=== PATIENT | male | born 1960 | race Caucasian/White ===

== ENCOUNTER 2016-10-13 17:55 | Emergency (ER) | payer MEDICAID ==
[~2016-10-13] VITALS: Ht 160 cm; Wt 80.0 kg
[2016-10-13 17:58] VITALS: Ht 160 cm; Wt 80.0 kg
[2016-10-13] MEDS ORDERED: DIPHENHYDRAMINE 50 MG INJ IM ONE (19:00)
[2016-10-13] MEDS ORDERED: predniSONE 20 MG TAB PO ONE (19:00)
[2016-10-13 19:20] LABS: ADD UMIC NO; URINE BILIRUBIN (Dip) NEGATIVE (NEGATIVE); URINE BLOOD (Dip) NEGATIVE (NEGATIVE); URINE COLOR YELLOW (YELLOW); URINE GLUCOSE (Dip) NEGATIVE (NEGATIVE); URINE KETONES (Dip) NEGATIVE (NEGATIVE); URINE LEUKOCYTE ESTERASE (Dip) NEGATIVE (NEGATIVE); URINE NITRITE (Dip) NEGATIVE (NEGATIVE); URINE TOTAL PROTEIN (Dip) NEGATIVE (NEGATIVE); URINE UROBILINOGEN (Dip) 1.0 E.U./dL (0.1-1.0)
[2016-10-13] MEDS ORDERED: BEN25 PO (19:35)
[2016-10-13] MEDS ORDERED: PRED20TA PO (19:35)
[2016-10-13] MEDS ORDERED: HC30CR25 TOP (19:36)
--- NOTE | 2016-10-13 19:38 | ERD ---
ER Documentation Chief Complaint Date/Time DATE: 10/13/16 TIME: 19:36 Chief Complaint rash/itching x 1 week HPI This 56-year-old male complains of an itchy rash for last week. His or his whole body extremities and groin. Denies any new medications or known allergies. Denies any vomiting, abdominal pain, shortness of breath, sore throat. ROS All systems reviewed and are negative except as per history of present illness. Medications Home Meds Active Scripts Hydrocortisone* Topical (Hydrocortisone* Topical) 2.5%-28.3 Gm Cream..g., 1 APPLIC TOP BID for 7 Days, #1 TUB Prov:MADELINE ONEILL MD 10/13/16 Diphenhydramine Hcl* (Benadryl*) 25 Mg Cap, 25 MG PO Q6, #20 CAP Prov:MADELINE ONEILL MD 10/13/16 Prednisone* (Prednisone*) 20 Mg Tab, 60 MG PO DAILY for 4 Days, TAB Start 10/14/2016 Prov:MADELINE ONEILL MD 10/13/16 Allergies Allergies: Coded Allergies: No Known Allergy (Unverified , 10/13/16) PMhx/Soc Medical and Surgical Hx: pt denies Medical Hx, pt denies Surgical Hx Hx Alcohol Use: No Hx Substance Use: No Hx Tobacco Use: No Smoking Status: Never smoker Physical Exam Vitals Vital Signs Date Time Temp Pulse Resp B/P Pulse Ox O2 Delivery O2 Flow Rate FiO2 10/13/16 17:58 99.3 90 18 120/70 99 Physical Exam Const: [] Alert, not ill-appearing. Head: Atraumatic Eyes: Normal Conjunctiva ENT: Normal External Ears, Nose and Mouth. TMs and oropharynx normal. Neck: Full range of motion..~ No meningismus. Resp: Clear to auscultation bilaterally Cardio: Regular rate and rhythm, no murmurs Abd: Soft, non tender, non distended. Normal bowel sounds Skin: No petechiae or purpura. There is a scattered very fine or faint macular papular rash which From his brother no focal lesions. Back: No midline or flank tenderness Ext: No cyanosis, or edema Neur: Awake and alert Psych: Normal Mood and Affect Results 24 hrs Laboratory Tests Test 10/13/16 19:03 Urine Color YELLOW Urine Clarity CLEAR Urine pH 6.0 Urine Specific Mcgrady 1.015 Urine Ketones NEGATIVE Urine Nitrite NEGATIVE Urine Bilirubin NEGATIVE Urine Urobilinogen 1.0 E.U./dL Urine Leukocyte Esterase NEGATIVE Urine Hemoglobin NEGATIVE Urine Glucose NEGATIVE% Urine Total Protein NEGATIVE Current Medications Medications (Trade) Dose Ordered Sig/Ivanna Route PRN Reason Start Time Stop Time Status Last Admin Dose Admin Diphenhydramine HCl (Benadryl) 50 mg ONCE ONCE IM 10/13/16 19:00 10/13/16 19:01 DC 10/13/16 19:07 Prednisone (Prednisone) 60 mg ONCE ONCE PO 10/13/16 19:00 10/13/16 19:01 DC 10/13/16 19:08 Procedures/MDM Urine is negative for bilirubin, leukocytes, glucose and is normal. Patient presents for an itchy rash uncertain etiology without evidence of hepatobiliary disease, signs of focal lesions to suggest insect bite scabies. Some signs of anaphylaxis or cellulitis. His no additional evidence of purpura or life- threatening rashes. He has a dermatitis of uncertain etiology. Is given prednisone 60 mg by mouth and Benadryl 50 mg IM. He'll be treated with a course of Benadryl and cortisone and prednisone home and further observation. Patient is advised to follow-up with his primary doctor this week or return to the ER for new or worsening symptoms. Departure Diagnosis: Primary Impression: Rash Condition: Stable Patient Instructions: Dermatitis, Non-Specific Additional Instructions: Recheck for new worsening symptoms with primary care doctor. MADELINE ONEILL MD October 13, 2016 19:38
== END 2016-10-13 21:21 | disposition home or self-care (01) ==
LOC: FTE 17:55
DX: R21 Rash and other nonspecific skin eruption (principal)
CPT/HCPCS: 81003; 96372; J1200; J7512; Z7502

== ENCOUNTER 2016-11-29 12:30 | Emergency (ER) | payer SELFPAY ==
[~2016-11-29] VITALS: Ht 165.1 cm; Wt 73.0 kg
[~2016-11-29 12:30] MED LIST: BEN25 PO; HC30CR25 TOP; PRED20TA PO
[2016-11-29 12:32] VITALS: Ht 165.1 cm; Wt 73.0 kg
[2016-11-29] MEDS ORDERED: ONDANSETRON 4 MG INJ IV STA (12:53)
[2016-11-29] MEDS ORDERED: LORAZEPAM 2 MG INJ IV ONE (13:00)
[2016-11-29] MEDS ORDERED: SOD CHLORIDE 0.9% 1,000 ML IV ONE (13:00)
[2016-11-29] MEDS ORDERED: TRAZ50TA18 PO (14:28)
[2016-11-29] MEDS ORDERED: ONDA4TAB11 PO (14:28)
--- NOTE | 2016-11-29 14:33 | ERD ---
ER Documentation Chief Complaint Date/Time DATE: 11/29/16 TIME: 14:30 Chief Complaint crystal meth use x 3 days HPI There is 56-year-old male states that he used crystal meth the last 3 days except for today. States that he had trouble sleeping at night. Also has some nausea today. Denies any chest pain or shortness of breath. Has no fever or chills. ROS All systems reviewed and are negative except as per history of present illness. Medications Home Meds Active Scripts Trazodone Hcl* (Trazodone Hcl*) 50 Mg Tablet, 50 MG PO QHS for INSOMNIA, #4 TAB Prov:AKOSUAVIOLET DO 11/29/16 Ondansetron (Zofran Odt) 4 Mg Tab.rapdis, 4 MG PO Q6, #10 Prov:AKOSUAHARISHVIOLET DO 11/29/16 Discontinued Scripts Hydrocortisone* Topical (Hydrocortisone* Topical) 2.5%-28.3 Gm Cream..g., 1 APPLIC TOP BID for 7 Days, #1 TUB Prov:MADELINE ONEILL MD 10/13/16 Diphenhydramine Hcl* (Benadryl*) 25 Mg Cap, 25 MG PO Q6, #20 CAP Prov:MADELINE ONEILL MD 10/13/16 Prednisone* (Prednisone*) 20 Mg Tab, 60 MG PO DAILY for 4 Days, TAB Start 10/14/2016 Prov:MADELINE ONEILL MD 10/13/16 Allergies Allergies: Coded Allergies: No Known Allergy (Unverified , 11/29/16) PMhx/Soc Hx Alcohol Use: No Hx Substance Use: No Hx Tobacco Use: No Physical Exam Vitals Vital Signs Date Time Temp Pulse Resp B/P Pulse Ox O2 Delivery O2 Flow Rate FiO2 11/29/16 12:32 100.0 118 18 145/102 99 Physical Exam Const: [] No acute distress Head: Atraumatic Eyes: Normal Conjunctiva, EOMI, PERRLA ENT: Normal External Ears, Nose and Mouth. Neck: Full range of motion..~ No meningismus. Resp: Clear to auscultation bilaterally Cardio: Regular tachycardia, no murmurs Abd: Soft, non tender, non distended. Normal bowel sounds Skin: No petechiae or rashes Back: No midline or flank tenderness Ext: No cyanosis, or edema Neur: Awake and alert and oriented 3, no focal deficits Psych: Normal Mood and Affect Results 24 hrs Current Medications Medications (Trade) Dose Ordered Sig/Ivanna Route PRN Reason Start Time Stop Time Status Last Admin Dose Admin Sodium Chloride (NS) 1,000 ml @ 1,000 mls/hr Q1H ONCE IV 11/29/16 13:00 11/29/16 13:59 DC 11/29/16 13:05 Ondansetron HCl (Zofran Inj) 4 mg ONCE STAT IV 11/29/16 12:53 11/29/16 12:55 DC 11/29/16 13:05 Lorazepam (Ativan) 1 mg ONCE ONCE IV 11/29/16 13:00 11/29/16 13:01 DC 11/29/16 13:05 Procedures/MDM Meth abuse leading to insomnia and nausea. Patient's symptoms were resolved in the emergency room. He was given 1 mg of Ativan as well as 4 mg of Zofran IV and 1 L of IV fluid. Initially tachycardic his tachycardia did resolve. He also felt much better was taking good p.o. discharge with primary care follow- up in the next 2-3 days as well as a few trazodone pills for insomnia and Zofran ODT as needed nausea. Also spent 3 minutes counseling on methamphetamine abuse and addiction and discharging with written paperwork. He has no thoughts of hurting himself or others and states that he will cease meth use Departure Diagnosis: Primary Impression: Methamphetamine abuse Additional Impressions: Insomnia Nausea Condition: Stable Patient Instructions: Treating Insomnia, Understanding Methamphetamine Abuse and Addiction, Nausea Referrals: [facility] YOU HAVE RECEIVED A MEDICAL SCREENING EXAM AND THE RESULTS INDICATE THAT YOU DO NOT HAVE A CONDITION THAT REQUIRES URGENT TREATMENT IN THE EMERGENCY DEPARTMENT. FURTHER EVALUATION AND TREATMENT OF YOUR CONDITION CAN WAIT UNTIL YOU ARE SEEN IN YOUR DOCTORS OFFICE WITHIN THE NEXT 1-2 DAYS. IT IS YOUR RESPONSIBILITY TO MAKE AN APPOINTMENT FOR FOLOW-UP CARE. IF YOU HAVE A PRIMARY DOCTOR --you should call your primary doctor and schedule an appointment IF YOU DO NOT HAVE A PRIMARY DOCTOR YOU CAN CALL OUR PHYSICIAN REFERRAL HOTLINE AT IF YOU CAN NOT AFFORD TO SEE A PHYSICIAN YOU CAN CHOSE FROM THE FOLLOWING [facility] [address] [facility]. [facility] [address] [facility] [facility] [address] [facility] [address] [facility] [address] [facility]. [facility] [address] Additional Instructions: Call your primary care doctor TOMORROW for an appointment during the next 2-3 days.See the doctor sooner or return here if your condition worsens before your appointment time. VIOLET SOUTH DO Nov 29, 2016 14:32
== END 2016-11-29 17:45 | disposition home or self-care (01) ==
LOC: E/R 12:30
DX: F15.10 Other stimulant abuse, uncomplicated (principal); G47.00 Insomnia, unspecified; R11.0 Nausea
CPT/HCPCS: 96374; 96375; 99284; J2060; J2405; J7030

== ENCOUNTER 2017-01-16 12:59 | Emergency (ER) | payer MEDICAID ==
[~2017-01-16] VITALS: Ht 165.1 cm; Wt 75.0 kg
[~2017-01-16 12:59] MED LIST changes: -BEN25 PO; -HC30CR25 TOP; +ONDA4TAB11 PO; -PRED20TA PO; +TRAZ50TA18 PO
[2017-01-16 13:05] VITALS: Ht 165.1 cm; Wt 75.0 kg
--- NOTE | 2017-01-16 13:18 | ERD ---
ER Documentation Chief Complaint Date/Time DATE: 01/16/17 TIME: 13:17 Chief Complaint visual hallucinations , after crystal meth use HPI Patient is a 56-year-old male who reports smoking methamphetamine yesterday and being paranoid that people were following him. He states that after arriving at the hospital he feels more calm and is not worried about people following him. He is not hearing voices. He denies depression or suicidal ideation. He denies homicidal ideation. He denies myalgia, chest pain, shortness of breath. ROS All systems reviewed and are negative except as per history of present illness. Medications Home Meds Discontinued Scripts Trazodone Hcl* (Trazodone Hcl*) 50 Mg Tablet, 50 MG PO QHS for INSOMNIA, #4 TAB Prov:VIOLET SOUTH DO 11/29/16 Ondansetron (Zofran Odt) 4 Mg Tab.rapdis, 4 MG PO Q6, #10 Prov:AKOSUAVIOLET DO 11/29/16 Allergies Allergies: Coded Allergies: No Known Allergy (Unverified , 01/16/17) PMhx/Soc Past medical history: None Past surgical history: None Social history: Smokes methamphetamine, drinks alcohol, denies tobacco use Hx Alcohol Use: No Hx Substance Use: No Hx Tobacco Use: No FmHx Noncontributory Physical Exam Vitals Vital Signs Date Time Temp Pulse Resp B/P Pulse Ox O2 Delivery O2 Flow Rate FiO2 01/16/17 14:15 98.0 105 18 155/99 97 Room Air 01/16/17 13:05 98.1 122 18 160/109 100 Physical Exam Const: Alert, no acute distress Head: Atraumatic Eyes: Normal Conjunctiva, no pallor, no icterus ENT: Normal External Ears, Nose and Mouth. Mucous membranes moist Neck: Full range of motion..~ No meningismus. Resp: Clear to auscultation bilaterally, no wheezes, no rales Cardio: Tachycardia, regular rhythm, no murmurs Abd: Soft, non tender, non distended. Normal bowel sounds Skin: No petechiae or rashes Back: No midline or flank tenderness Ext: No cyanosis, or edema Neur: Awake and alert, cranial nerves II through XII intact bilaterally, strength and sensation full throughout 4 extremities Psych: Normal Mood and Affect, calm, not responding to internal stimuli. Results 24 hrs Current Medications Medications (Trade) Dose Ordered Sig/Ivanna Route PRN Reason Start Time Stop Time Status Last Admin Dose Admin Lorazepam (Ativan) 1 mg ONCE ONCE PO 01/16/17 13:30 01/16/17 13:31 DC 01/16/17 13:27 Procedures/MDM MDM: Patient is a 56-year-old male who presents to the ER stating that he has been feeling paranoid that someone is following him after he smoked methamphetamines and drank alcohol yesterday. He has tachycardia, which is likely due to underlying methamphetamine use, and improved with Ativan and p.o. fluids. He has no signs of dehydration. He is tolerating oral intake. He states that his paranoia has resolved spontaneously on his arrival in the ER. He denies history of psychiatric disorder, has no evidence of acute psychosis, no evidence of suicidal ideation or homicidal ideation. He is stable for discharge home with instructions to avoid drugs and alcohol, drink plenty of fluids, and return to the ER for any new or worsening symptoms. He was triaged his having visual hallucinations, but on my history, he denied any visual or auditory hallucinations, and only stated that he felt anxious that someone was following him. Departure Diagnosis: Primary Impression: Paranoia Additional Impression: Methamphetamine abuse Condition: THEODORE Valerio MD Jan 16, 2017 13:14
[2017-01-16] MEDS ORDERED: LORAZEPAM 1 MG TAB PO ONE (13:30)
[2017-01-16 14:15] VITALS: BP 155/99; PULSE 105; RESP 18; TEMP 98
== END 2017-01-16 14:20 | disposition home or self-care (01) ==
LOC: E/R 12:59
DX: F22 Delusional disorders (principal); F15.10 Other stimulant abuse, uncomplicated
CPT/HCPCS: Z7502; Z7610; 99283